=== PATIENT | male | born 1965 | race African-American/Black ===

== ENCOUNTER 2018-06-15 13:33 | Emergency (ER) | payer SELFPAY ==
[~2018-06-15] VITALS: Ht 185.4 cm; Wt 83.6 kg
[2018-06-15 13:33] VITALS: BP 128/96
== END 2018-06-15 15:20 | disposition left against medical advice (07) ==
LOC: EMS 13:33
DX: M25.512 Pain in left shoulder (principal); Z53.21 Procedure and treatment not carried out due to patient leaving prior to being seen by health care provider

== ENCOUNTER 2018-06-19 14:31 | Emergency (ER) | payer MEDICAID, SELFPAY ==
[~2018-06-19] VITALS: Ht 170.2 cm; Wt 80.5 kg
[2018-06-19 14:32] VITALS: BP 126/83
[2018-06-19] MEDS ORDERED: ACETAMINOPHEN 500 MG TABLET PO ONE (15:45)
[2018-06-19] MEDS ORDERED: CYCLOBENZAPRINE HCL 10 MG TABLET PO ONE (15:45)
== END 2018-06-19 16:29 | disposition home or self-care (01) ==
LOC: EMS 14:33
DX: S46.912A Strain of unspecified muscle, fascia and tendon at shoulder and upper arm level, left arm, initial encounter (principal); M54.2 Cervicalgia; F17.210 Nicotine dependence, cigarettes, uncomplicated; X50.0XXA Overexertion from strenuous movement or load, initial encounter; Y93.89 Activity, other specified; Y92.89 Other specified places as the place of occurrence of the external cause; Y99.8 Other external cause status
CPT/HCPCS: 99283

== ENCOUNTER 2018-07-30 04:05 | Emergency (ER) | payer MEDICAID ==
[~2018-07-30] VITALS: Ht 182.9 cm; Wt 85.5 kg
[2018-07-30] MEDS ORDERED: DIAZEPAM 5 MG TABLET PO ONE (06:30)
[2018-07-30] MEDS ORDERED: KETOROLAC TROMETHAMINE 30 MG/ML VIAL IM ONE (06:30)
[2018-07-30 07:35] VITALS: BP 121/74
[2018-07-30] MEDS ORDERED: CYCL10 PO (22:56)
[2018-07-30] MEDS ORDERED: HYDR-4061 PO (22:56)
== END 2018-07-30 07:41 | disposition home or self-care (01) ==
LOC: EMS 04:06
DX: M43.6 Torticollis (principal); M25.512 Pain in left shoulder; F17.210 Nicotine dependence, cigarettes, uncomplicated; Z98.890 Other specified postprocedural states
CPT/HCPCS: 72040; 73030; 96372; 99284; J1885

== ENCOUNTER 2018-07-30 22:40 | Emergency (ER) | payer MEDICAID ==
[~2018-07-30] VITALS: Ht 182.9 cm; Wt 81.8 kg
[2018-07-30] MEDS ORDERED: CYCL10 PO (22:56)
[2018-07-30] MEDS ORDERED: HYDR-4061 PO (22:56)
[2018-07-31] MEDS ORDERED: KETOROLAC TROMETHAMINE 60 MG/2 ML VIAL IM ONE
[2018-07-31] MEDS ORDERED: DIAZEPAM 5 MG TABLET PO ONE
[2018-07-31 00:21] VITALS: BP 133/86
== END 2018-07-31 00:22 | disposition home or self-care (01) ==
LOC: EMS 22:42
DX: S13.4XXA Sprain of ligaments of cervical spine, initial encounter (principal); F17.210 Nicotine dependence, cigarettes, uncomplicated; Z90.49 Acquired absence of other specified parts of digestive tract; X58.XXXA Exposure to other specified factors, initial encounter; Y93.89 Activity, other specified; Y92.89 Other specified places as the place of occurrence of the external cause; Y99.8 Other external cause status
CPT/HCPCS: 96372; 99283; 99406; J1885

== ENCOUNTER 2020-01-10 16:12 | Emergency (ER) | payer MEDICAID ==
[~2020-01-10] VITALS: Ht 185.4 cm; Wt 85.5 kg
[~2020-01-10 16:12] MED LIST: CYCL10 PO; HYDR-4061 PO
[2020-01-10 19:34] VITALS: BP 116/76
== END 2020-01-10 19:35 | disposition home or self-care (01) ==
LOC: EMS 16:14
DX: M72.2 Plantar fascial fibromatosis (principal); F17.210 Nicotine dependence, cigarettes, uncomplicated; Z90.89 Acquired absence of other organs
CPT/HCPCS: 99406

== ENCOUNTER 2020-08-18 04:36 | Emergency (ER) | payer MEDICAID ==
[~2020-08-18] VITALS: Ht 182.9 cm; Wt 85.5 kg
[2020-08-18] MEDS ORDERED: KETOROLAC TROMETHAMINE 60 MG/2 ML VIAL IM ONE (05:15)
[2020-08-18 06:01] VITALS: BP 137/79
== END 2020-08-18 06:05 | disposition home or self-care (01) ==
LOC: EMS 04:36
DX: S96.912A Strain of unspecified muscle and tendon at ankle and foot level, left foot, initial encounter (principal); X58.XXXA Exposure to other specified factors, initial encounter; Y93.89 Activity, other specified; Y92.89 Other specified places as the place of occurrence of the external cause; Y99.8 Other external cause status
CPT/HCPCS: 73610; 73630; 96372; 99284; J1885

== ENCOUNTER 2020-08-23 19:25 | Emergency (ER) | payer MEDICAID ==
[~2020-08-23] VITALS: Ht 182.9 cm; Wt 85.5 kg
[2020-08-23 19:31] VITALS: BP 140/81
== END 2020-08-23 21:34 | disposition left against medical advice (07) ==
LOC: EMS 19:26
DX: M79.89 Other specified soft tissue disorders (principal); Z53.21 Procedure and treatment not carried out due to patient leaving prior to being seen by health care provider

== ENCOUNTER 2023-04-15 09:40 | Emergency (ER) | payer MEDICAID ==
[~2023-04-15] VITALS: Ht 182.9 cm; Wt 86.4 kg
[2023-04-15] MEDS ORDERED: KETOROLAC TROMETHAMINE 60 MG/2 ML VIAL IM ONE (10:15)
[2023-04-15 12:30] VITALS: BP 120/68
[2023-04-15] MEDS ORDERED: IBUP-1492 PO (12:52)
== END 2023-04-15 13:17 | disposition home or self-care (01) ==
LOC: EMS 09:45
DX: M25.551 Pain in right hip (principal); F17.210 Nicotine dependence, cigarettes, uncomplicated; Z90.89 Acquired absence of other organs
CPT/HCPCS: 99283; 73502; 96372; J1885

== ENCOUNTER 2024-03-08 10:57 | Emergency (ER) | payer MEDICAID ==
[~2024-03-08] VITALS: Ht 182.9 cm; Wt 83.0 kg
[~2024-03-08 10:57] MED LIST changes: -CYCL10 PO; -HYDR-4061 PO; +IBUP-1492 PO
[2024-03-08 11:05] VITALS: TEMP 98
[2024-03-08] MEDS: IBUPROFEN 600 MG TABLET PO ONE (12:00)
[2024-03-08] MEDS: ACETAMINOPHEN 500 MG TABLET PO ONE (12:00)
[2024-03-08 14:30] VITALS: BP 129/74; PULSE 78; RESP 16
[2024-03-08] MEDS ORDERED: ACET-3385 PO (14:56)
[2024-03-08] MEDS ORDERED: IBUP-1492 PO (14:56)
== END 2024-03-08 15:58 | disposition home or self-care (01) ==
LOC: EMS 11:55
DX: M25.552 Pain in left hip (principal); M25.551 Pain in right hip; F17.210 Nicotine dependence, cigarettes, uncomplicated; Z90.49 Acquired absence of other specified parts of digestive tract; Z98.890 Other specified postprocedural states
CPT/HCPCS: 73521; 99283